=== PATIENT | female | born 1930 | race Caucasian/White ===

== ENCOUNTER 2016-09-25 15:47 | Emergency (ER) | payer MEDICARE, BC ==
[2016-09-25 16:26] VITALS: BP 138/67
[2016-09-25] MEDS ORDERED: Take Home: Cephalexin 500 MG Cap, 4 Cap Pack PO ONE (16:33)
--- NOTE | 2016-09-25 16:34 | EDM.PDOC ---
ED HPI GENERAL MEDICAL PROBLEM - General Chief Complaint: Skin Complaint Stated Complaint: BUG BITE Time Seen by Provider: 09/25/16 15:48 Source of Information: Reports: Patient, Family, RN, RN Notes Reviewed History Limitations: Reports: No Limitations - History of Present Illness INITIAL COMMENTS - FREE TEXT/NARRATIVE: Patient presents to the ED at [facility] with concerns of a possible bug bite to the right lower extremity. Patient states she has noticed redness and swelling to the right lower leg that started two days ago. She is not sure if she was biten by a bug. She states the area is itchy. Some tenderness to palpation. No previous injury or trauma. Onset Date: 09/23/16 Location: Reports: Lower Extremity, Right - Related Data Allergies Allergy/AdvReac Type Severity Reaction Status Date / Time olopatadine Allergy Itching Verified 09/25/16 16:32 simvastatin Allergy Other Verified 09/25/16 16:32 Home Meds: Home Meds Aspirin 325 mg PO DAILY 04/24/15 [History] Calcium Carbonate 600 mg PO DAILY 04/24/15 [History] Diltiazem HCl [Tiazac] 180 mg PO DAILY 04/24/15 [History] Enalapril [Vasotec] 2 tab PO BID 04/24/15 [History] Ezetimibe [Zetia] 10 mg PO DAILY 04/24/15 [History] Hydrochlorothiazide 25 mg PO DAILY 04/24/15 [History] Levothyroxine [Synthroid] 88 mcg PO DAILY 04/24/15 [History] Metoprolol Succinate [Toprol XL] 100 mg PO DAILY 04/24/15 [History] Multivitamin [Multivitamins] 1 each PO DAILY 04/24/15 [History] hydrALAZINE HCl [Hydralazine HCl] 2 tab PO BID 04/24/15 [History] sulfaSALAzine 2 tab PO TID 04/24/15 [History] hydrALAZINE [Apresoline] 06/18/15 [History] sulfaSALAzine [Sulfazine EC] 06/18/15 [History] Cephalexin 500 mg PO TID #26 capsule 09/25/16 [Rx] Past Medical History HEENT History: Reports: Cataract Cardiovascular History: Reports: Hypertension 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 (See Below) Other OB/BYN History: D&C Musculoskeletal History: Reports: RA Neurological History: Reports: CVA Social & Family History - Tobacco Use Smoking Status *Q: Never Smoker - Recreational Drug Use Recreational Drug Use: No ED ROS GENERAL - Review of Systems Review Of Systems: See Below Constitutional: Denies: Fever, Chills, Weakness Respiratory: Denies: Shortness of Breath, Cough Cardiovascular: Denies: Chest Pain, Palpitations Skin: Reports: Pruritis, Rash, Erythema Neurological: Reports: No Symptoms ED EXAM, SKIN/RASH Exam: See Below Exam Limited By: No Limitations General Appearance: Alert, No Apparent Distress Respiratory/Chest: No Respiratory Distress, Lungs Clear, Normal Breath Sounds Cardiovascular: Regular Rate, Rhythm Neurological: Alert, Oriented Skin: Erythema, Increased Warmth, Rash Location, Skin: Lower Extremity, Right Characteristics: Erythematous Associated features: Warmth, Tenderness, Wwelling Course - Vital Signs Last Recorded V/S: Last Vital Signs Temp 36.8 C 09/25/16 16:00 Pulse 66 09/25/16 16:00 Resp 16 09/25/16 16:00 BP 138/67 09/25/16 16:00 Pulse Ox 95 09/25/16 16:00 Departure - Departure Time of Disposition: 16:34 Disposition: Home, Self-Care 01 Condition: Good Clinical Impression: Cellulitis and abscess of right lower extremity - Discharge Information Prescriptions: Cephalexin 500 mg PO TID #26 capsule Instructions: Cellulitis, Adult Forms: ED Department Discharge Additional Instructions: 1. Stay well hydrated and rest 2. Take medications for the full coarse, even if you are feeling better 3. Rest, elevate, and ice right lower leg several times a day 4. Follow up with your Primary care provider next week for a recheck to make sure your leg is healing - Problem List Review Problem List Initiated/Reviewed/Updated: Yes
== END 2016-09-25 16:45 | disposition home or self-care (01) ==
LOC: VM.ED 15:47
DX: L03.115 Cellulitis of right lower limb (principal); L02.415 Cutaneous abscess of right lower limb; I10 Essential (primary) hypertension; Z86.73 Personal history of transient ischemic attack (TIA), and cerebral infarction without residual deficits; Z79.82 Long term (current) use of aspirin; Z79.899 Other long term (current) drug therapy; Z88.8 Allergy status to other drugs, medicaments and biological substances
CPT/HCPCS: 99282; A9270

== ENCOUNTER 2017-12-18 18:09 | Observation (INO) | payer MEDICARE, BC ==
--- NOTE | 2017-12-18 18:54 | EDM.PDOC ---
<Ray Murray - Last Filed: 12/18/17 19:06> ED HPI GENERAL MEDICAL PROBLEM - General Chief Complaint: General Stated Complaint: palpitations Time Seen by Provider: 12/18/17 18:29 Source of Information: Reports: Patient, Family History Limitations: Reports: No Limitations - History of Present Illness INITIAL COMMENTS - FREE TEXT/NARRATIVE: Patient presents this afternoon to the emergency room with complaints of palpitations. She was recently seen last week and given a Holter monitor by a fleet sales manager at [facility] in [place]. This was dropped off on Saturday and she has not heard results. She states she's felt like she's had palpitations all day today and earlier this evening when she called her clinic they told her to come to the emergency room. She states she is experiencing some chest discomfort but doesn't call it pain. When asked she denies chest pressure, or pain. She again refers to it as discomfort and is unable to quantify how it feels. She denies headache, shortness of breath, abdominal pain, decreased range of motion or pain to any of her extremities, and is having normal urinary and bowel movements. Remote history of a stroke she was 45 years old. Onset: Today, Gradual Duration: Intermittent Location: Reports: Chest Quality: Reports: Other ("uncomfortable") Severity: Mild Improves with: Reports: Rest Worsens with: Reports: Movement Associated Symptoms: Reports: No Other Symptoms - Related Data Allergies Allergy/AdvReac Type Severity Reaction Status Date / Time olopatadine Allergy Itching Verified 09/25/16 16:32 simvastatin Allergy Other Verified 09/25/16 16:32 Home Meds: Home Meds Aspirin 325 mg PO DAILY 04/24/15 [History] Calcium Carbonate 600 mg PO DAILY 04/24/15 [History] Diltiazem HCl [Tiazac] 240 mg PO DAILY 04/24/15 [History] Enalapril [Vasotec] 2 tab PO BID 04/24/15 [History] Levothyroxine [Synthroid] 88 mcg PO DAILY 04/24/15 [History] Metoprolol Succinate [Toprol XL] 25 mg PO DAILY 04/24/15 [History] Multivitamin [Multivitamins] 1 each PO DAILY 04/24/15 [History] hydroCHLOROthiazide [Hydrochlorothiazide] 25 mg PO DAILY 04/24/15 [History] hydrALAZINE [Apresoline] 100 mg PO BID 06/18/15 [History] sulfaSALAzine [Sulfazine EC] 1,000 mg PO TID 06/18/15 [History] Past Medical History HEENT History: Reports: Cataract Cardiovascular History: Reports: Hypertension 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 Musculoskeletal History: Reports: RA Neurological History: Reports: CVA ED ROS GENERAL - Review of Systems Review Of Systems: See Below Constitutional: Reports: No Symptoms HEENT: Reports: No Symptoms Respiratory: Reports: No Symptoms Cardiovascular: Reports: Other (chest discomfort) Endocrine: Reports: No Symptoms GI/Abdominal: Reports: No Symptoms : Reports: No Symptoms Musculoskeletal: Reports: No Symptoms Skin: Reports: No Symptoms Neurological: Reports: No Symptoms Psychiatric: Reports: No Symptoms Hematologic/Lymphatic: Reports: No Symptoms Immunologic: Reports: No Symptoms ED EXAM, GENERAL - Physical Exam Exam: See Below Exam Limited By: No Limitations General Appearance: Alert, WD/WN, Mild Distress Eye Exam: Bilateral Eye: EOMI, PERRL Ears: Normal TMs Nose: Normal Inspection, Normal Mucosa, No Blood Throat/Mouth: Normal Inspection, Normal Lips, Normal Teeth, Normal Gums, Normal Oropharynx, Normal Voice, No Airway Compromise Head: Atraumatic, Normocephalic Neck: Normal Inspection, Supple, Non-Tender, Full Range of Motion Respiratory/Chest: No Respiratory Distress, Lungs Clear, Normal Breath Sounds, No Accessory Muscle Use, Chest Non-Tender Cardiovascular: Normal Peripheral Pulses, Regular Rate, Rhythm, No Edema, No Gallop, No JVD, No Murmur, No Rub Peripheral Pulses: 2+: Posterior Tibial (L), Posterior Tibial (R), Dorsalis Pedis (L), Dorsalis Pedis (R) GI/Abdominal: Normal Bowel Sounds, Soft, Non-Tender, No Organomegaly, No Distention, No Abnormal Bruit, No Mass Back Exam: Normal Inspection, Full Range of Motion, NT Extremities: Normal Inspection, Normal Range of Motion, Non-Tender, Normal Capillary Refill, No Pedal Edema Neurological: Alert, Oriented, CN II-XII Intact, Normal Cognition, Normal Gait, Normal Reflexes, No Motor/Sensory Deficits Psychiatric: Normal Affect, Normal Mood Skin Exam: Warm, Dry, Intact, Normal Color, No Rash Lymphatic: No Adenopathy EKG INTERPRETATION EKG Date: 12/18/17 Time: 18:21 Rhythm: NSR Rate (Beats/Min): 67 [place]: LAD-Left [place] Deviation P-Wave: Present QRS: Normal ST-T: Normal QT: Normal Comparison: Change From Previous EKG Course - Vital Signs Last Recorded V/S: Last Vital Signs Temp 37.6 C 12/18/17 18:15 Pulse 68 12/18/17 18:15 Resp 16 12/18/17 20:20 BP 150/66 H 12/18/17 20:20 Pulse Ox 97 12/18/17 18:15 - Orders/Labs/Meds Orders: Active Orders 24 hr Category Date Time Status EKG 12 Lead [EKG Documentation Completion] [RC] STAT Care 12/18/17 18:37 Active Chest 1V Frontal [CR] Stat Exams 12/18/17 18:37 Taken Medication Orders Aspirin (Ecotrin) 325 mg PO DAILY [facility] Calcium Carbonate (Calcium Carbonate/Vitamin D 1250 Mg-200 Unit) 1 tab PO DAILY [facility] Diltiazem HCl (Dilacor Xr) 240 mg PO DAILY [facility] Hydralazine HCl (Apresoline) 100 mg PO BID ERIC Hydrochlorothiazide (Hydrochlorothiazide) 25 mg PO DAILY [facility] Levothyroxine Sodium (Synthroid) 88 mcg PO ACBRK ERIC Metoprolol Succinate (Toprol Xl) 25 mg PO DAILY [facility] Multivitamins/Minerals (Thera M Plus) 1 tab PO DAILY [facility] Non-Formulary Medication (Enalapril [Vasotec]) 2 tab PO BID ERIC Sulfasalazine (Sulfasalazine Dr) 1,000 mg PO TID ERIC Labs: Laboratory Tests 12/18/17 12/18/17 12/18/17 Range/Units 18:52 18:52 18:52 WBC 5.6 (4.0-10.0) x10^3/uL RBC 3.28 L (4.00-5.50) x10^6/uL Hgb 10.8 L (12.0-16.0) g/dL Hct 32.2 L (33.0-47.0) % MCV 98.2 H (78.0-93.0) fL MCH 32.9 H (26.0-32.0) pg MCHC 33.5 (32.0-36.0) g/dL RDW Coeff of Gabbi 13.7 (10.0-15.0) % Plt Count 257 (130-400) x10^3/uL Neut % (Auto) 61.5 (50.0-80.0) % Lymph % (Auto) 25.3 (25.0-50.0) % Tate % (Auto) 12.2 H (2.0-11.0) % Eos % (Auto) 0.5 (0.0-4.0) % Baso % (Auto) 0.5 (0.2-1.2) % PT 10.1 (9.6-11.4) SEC INR 1.0 L (2.0-3.5) Sodium 137 (136-145) mmol/L Potassium 3.4 L (3.5-5.1) mmol/L Chloride 102 (98-107) mmol/L Carbon Dioxide 28 (21-32) mmol/L Anion Gap 10.4 (10-20) mmol/L BUN 17 (7-18) mg/dL Creatinine 0.8 (0.55-1.02) mg/dL Est Cr Clr Drug Dosing TNP Estimated GFR (MDRD) > 60 Glucose 110 H (74-106) mg/dL Calcium 9.4 (8.5-10.1) mg/dL Corrected Calcium 9.80 (8.5-10.1) mg/dL Magnesium 1.9 (1.8-2.4) mg/dL Total Bilirubin 0.3 (0.2-1.0) mg/dL AST 16 (15-37) U/L ALT 17 (14-59) U/L Alkaline Phosphatase 59 (46-116) U/L Troponin I < 0.017 (<=0.056) ng/mL NT-Pro-B Natriuret Pep 150 (<=450) pg/mL Total Protein 7.5 (6.4-8.2) g/dL Albumin 3.5 (3.4-5.0) g/dL Globulin 4.0 Albumin/Globulin Ratio 0.88 TSH, Ultra Sensitive 4.374 H (0.358-3.74) uIU/mL Meds: Medications Generic Name Dose Route Start Last Admin Trade Name Freq PRN Reason Stop Dose Admin Aspirin 325 mg 12/19/17 08:00 Ecotrin PO DAILY ERIC Calcium Carbonate 1 tab 12/19/17 08:00 Calcium Carbonate/Vitamin D 1250 Mg-200 Unit PO DAILY ER[facility] Diltiazem HCl 240 mg 12/19/17 08:00 Dilacor Xr PO DAILY [facility] Hydralazine HCl 100 mg 12/19/17 08:00 Apresoline PO BID ERIC Hydrochlorothiazide 25 mg 12/19/17 08:00 Hydrochlorothiazide PO DAILY [facility] Levothyroxine Sodium 88 mcg 12/19/17 07:00 Synthroid PO ACBRK ERIC Metoprolol Succinate 25 mg 12/19/17 08:00 Toprol Xl PO DAILY [facility] Multivitamins/Minerals 1 tab 12/19/17 08:00 Thera M Plus PO DAILY [facility] Non-Formulary Medication 2 tab 12/19/17 08:00 Enalapril [Vasotec] PO BID ERIC Sulfasalazine 1,000 mg 12/19/17 08:[address] PO TID [facility] Departure - Departure Disposition: Refer to Observation Clinical Impression: Palpitations - Discharge Information <Sebastián Hou W - Last Filed: 12/18/17 21:28> Course - Radiology Interpretation Free Text/Narrative:: Chest x-ray is negative - Re-Assessments/Exams Free Text/Narrative Re-Assessment/Exam: 12/18/171999 Labs and x-ray are back and are essentially normal or unchanged. Pt. is currently not having any palpitations at this time. Departure - Departure Time of Disposition: 21:00 Condition: Good - Assessment/Plan Plan: Family is requesting inpatient observation. Will admit and continue telemetry. Will find the results of her holter study to determine if there was any tachycardia or rhythm disturbance. She is a code 2 DNR DNI.
[2017-12-18 19:28] LABS: ANION GAP 10.4 mmol/L (10-20); CHLORIDE,CL 102 mmol/L (98-107); SODIUM,NA 137 mmol/L (136-145)
[2017-12-19] MEDS: Levothyroxine 88 MCG Tab PO SCH ×2 (05:56→07:01)
[2017-12-19] MEDS: sulfaSALAzine 500 MG Tab.EC PO SCH ×2 (07:49→11:28)
[2017-12-19] MEDS: Metoprolol Succinate 25 MG Tab.ER PO SCH ×2 (07:50→07:51)
[2017-12-19] MEDS ORDERED: Aspirin 325 MG Tab.EC PO SCH (08:00)
[2017-12-19] MEDS ORDERED: hydrALAZINE 25 MG Tab PO SCH (08:00)
[2017-12-19] MEDS ORDERED: Multivitamins with Iron/Calcium/Folic Acid/Minerals Tab PO SCH (08:00)
[2017-12-19] MEDS ORDERED: Hydrochlorothiazide 25 MG Tab PO SCH (08:00)
[2017-12-19] MEDS ORDERED: Diltiazem 240 MG Cap.ER PO SCH (08:00)
[2017-12-19] MEDS ORDERED: Calcium Carbonate/Vitamin D3 1250 MG-200 Unit Tab PO SCH (08:00)
[2017-12-19 09:32] VITALS: BP 139/55
--- NOTE | 2017-12-20 01:28 | PCM.DCSUM1 ---
Discharge Summary - Hospital Course HPI Initial Comments: Was admitted evening of 12/18/17 with issues with continued palpitations. She has been seen for this recently by her PCP. She has a history of poorly controlled BP and her hydralazine was recently increased. Pt. has recently undergone a holter study (last week) the results of which were not available. She has had not significant arrythmia during her ER or observation stay, other than infrequent PACs. Offers no complaints of chest pain or shortness of breath. Diagnosis: Stroke: No - Discharge Data Discharge Date: 12/19/17 Discharge Disposition: Home, Self-Care 01 Condition: Stable - Discharge Diagnosis/Problem(s) (1) Palpitations SNOMED Code(s): 05069420 ICD Code: R00.2 - PALPITATIONS Status: Acute - Discharge Plan Home Medications: Home Meds Aspirin 325 mg PO DAILY 04/24/15 [History] Calcium Carbonate 600 mg PO DAILY 04/24/15 [History] Enalapril [Vasotec] 40 mg PO BID 04/24/15 [History] Levothyroxine [Synthroid] 88 mcg PO DAILY 04/24/15 [History] Multivitamin [Multivitamins] 1 each PO DAILY 04/24/15 [History] hydroCHLOROthiazide [Hydrochlorothiazide] 25 mg PO DAILY 04/24/15 [History] hydrALAZINE [Apresoline] 100 mg PO BID 06/18/15 [History] sulfaSALAzine [Sulfasalazine Dr] 1,000 mg PO TID 06/18/15 [History] Diltiazem HCl [Diltiazem 24Hr ER] 240 mg PO DAILY 12/19/17 [History] Metoprolol Succinate [Toprol XL] 25 mg PO DAILY 12/19/17 [History] Patient Handouts: Palpitations, [id number] Forms: ED Department Discharge Referrals: PCP,Unobtain [Primary Care Provider] - - General Info Date of Service: 12/19/17 Functional Status: Reports: Pain Controlled - Review of Systems General: Reports: No Symptoms HEENT: Reports: No Symptoms Pulmonary: Reports: No Symptoms Cardiovascular: Reports: Palpitations Gastrointestinal: Reports: No Symptoms Genitourinary: Reports: No Symptoms Musculoskeletal: Reports: No Symptoms Skin: Reports: No Symptoms Neurological: Reports: No Symptoms Psychiatric: Reports: No Symptoms - Patient Data Vitals - Most Recent: Last Vital Signs Temp 37.1 C 12/19/17 09:30 Pulse 73 12/19/17 09:30 Resp 16 12/19/17 09:30 BP 139/55 L 12/19/17 09:30 Pulse Ox 96 12/19/17 09:30 Weight - Most Recent: 72.575 kg I&O - Last 24 hours: Intake & Output 12/19/17 12/19/17 12/20/17 14:59 22:59 06:59 Intake Total 180 Balance 180 Med Orders - Current: Current Medications Discontinued Medications Aspirin (Ecotrin) 325 mg PO DAILY [facility] Last Admin: 12/19/17 07:49 Dose: 325 mg Calcium Carbonate (Calcium Carbonate/Vitamin D 1250 Mg-200 Unit) 1 tab PO DAILY [facility] Last Admin: 12/19/17 07:49 Dose: 1 tab Diltiazem HCl (Dilacor Xr) 240 mg PO DAILY [facility] Last Admin: 12/19/17 07:49 Dose: 240 mg Enalapril Maleate (Vasotec) 40 mg PO BID [facility] Last Admin: 12/19/17 07:49 Dose: 40 mg Hydralazine HCl (Apresoline) 100 mg PO BID [facility] Last Admin: 12/19/17 07:49 Dose: 100 mg Hydrochlorothiazide (Hydrochlorothiazide) 25 mg PO DAILY [facility] Last Admin: 12/19/17 07:50 Dose: 25 mg Levothyroxine Sodium (Synthroid) 88 mcg PO ACBRK [facility] Last Admin: 12/19/17 07:01 Dose: Not Given Metoprolol Succinate (Toprol Xl) 25 mg PO DAILY [facility] Last Admin: 12/19/17 07:51 Dose: Not Given Multivitamins/Minerals (Thera M Plus) 1 tab PO DAILY [facility] Last Admin: 12/19/17 07:49 Dose: 1 tab Sulfasalazine (Sulfasalazine Dr) 1,000 mg PO TID [facility] Last Admin: 12/19/17 11:28 Dose: 1,000 mg - Exam General: Reports: Alert, Oriented Neck: Reports: Supple. Denies: JVD Lungs: Reports: Clear to Auscultation, Normal Respiratory Effort Cardiovascular: Reports: Regular Rate, Regular Rhythm Extremities: Normal Inspection, Normal Range of Motion, Non-Tender, No Pedal Edema, Normal Capillary Refill Skin: Reports: Warm, Dry, Intact Neurological: Reports: No New Focal Deficit
== END 2017-12-19 12:06 | disposition home or self-care (01) ==
LOC: VM.ED 18:09 → VM.MS 19:52
PROVIDERS: ADMIT Physician Assistant; ATTEND Physician Assistant
DX: R00.2 Palpitations (principal); I10 Essential (primary) hypertension; M06.9 Rheumatoid arthritis, unspecified; Z79.82 Long term (current) use of aspirin; Z79.899 Other long term (current) drug therapy; Z88.8 Allergy status to other drugs, medicaments and biological substances
CPT/HCPCS: 36415; 71045; 80053; 83735; 83880; 84443; 84484; 85025; 85610; 93005; 99285; A9270-GY; G0378